=== PATIENT | female | born 1945 | race Caucasian/White ===

== ENCOUNTER 2016-03-06 05:33 | Emergency (ER) | payer MEDICARE ==
[~2016-03-06] VITALS: Ht 172.7 cm; Wt 59.8 kg
[~2016-03-06 05:33] MED LIST: LORTA5 PO; Z.0.NO CURRENT MEDS
[2016-03-06 05:40] VITALS: BP 119/68; PULSE 84; RESP 16; TEMP 97.8; O2SAT 98
[2016-03-06] MEDS ORDERED: AMIT24CA5 PO (06:09)
--- NOTE | 2016-03-06 06:27 | PD ---
HPI Chief Complaint: GI Complaint Time Seen by Provider: 06:05 Travel History International Travel<30 days: No Contact w/Intl Traveler<30days: No Traveled to known affect area: No History of Present Illness HPI The patient is a 70-year-old female with a history of irritable bowel syndromes and chronic constipation. She takes in Amitiza for the chronic constipation. She states this is worked until her boyfriend 2 weeks ago and now it is not working so well. She claims to have constipation now for 1 day. She denies any fever, nausea, vomiting, abdominal distention or diarrhea. She knows she does not drink adequate amounts of liquids. She is not a regular laxative taker, only takes Amitiza. PFSH Past Medical History Diminished Hearing: No Musculoskeletal: Yes (COMPRESSED DISCS) ?: Not Menopausal: Yes Past Surgical History Tonsillectomy: Yes Social History Alcohol Use: No Tobacco Use: No Substance Use: No Allergies-Medications (Allergen,Severity, Reaction): Coded Allergies: Iodine (Verified Allergy, Mild, 11/07/12) Reported Meds & Prescriptions Reported Meds & Active Scripts Active Golytely 236 gm (Polyethylene Glycol/Electrolytes) 4,000 Ml Soln 4,000 Ml PO ONCE Reported Amitiza (Lubiprostone) 24 Mcg Cap 24 Mg PO BID Review of Systems Except as stated in HPI: all other systems reviewed are Neg Physical Exam Narrative GENERAL: The patient is alert, oriented 3 in no apparent distress. Her vital signs are normal. SKIN: Warm and dry. No skin rash is present. HEAD: Atraumatic. Normocephalic. EYES: Pupils equal and round. No scleral icterus. No injection or drainage. ENT: No nasal bleeding or discharge. Mucous membranes pink and moist. NECK: Trachea midline. No JVD. CARDIOVASCULAR: Regular rate and rhythm. No murmur appreciated. RESPIRATORY: No accessory muscle use. Clear to auscultation. Breath sounds equal bilaterally. GASTROINTESTINAL: Abdomen soft, non-tender, nondistended. Hepatic and splenic margins not palpable. No guarding or rebound is present. MUSCULOSKELETAL: No obvious deformities. No clubbing. No cyanosis. No edema. NEUROLOGICAL: Awake and alert. No obvious cranial nerve deficits. Motor grossly within normal limits. Normal speech. PSYCHIATRIC: Appropriate mood and affect; insight and judgment normal. RECTAL EXAM: No masses or tenderness, stool is brown and guaiac-negative. There is a high fecal impaction present in the rectum. This was broken up digitally but the patient will need an enema. Data Data Last Documented VS Vital Signs Date Time Temp Pulse Resp B/P Pulse Ox O2 Delivery O2 Flow Rate FiO2 03/06/16 05:40 97.8 84 16 119/68 98 Room Air Orders Fleets Enema (Adult) (Fleets Enema (Adul (03/06/16 06:30) Magnesium Citrate Liq (Citroma Liq) (03/06/16 06:30) MDM Medical Decision Making Medical Screen Exam Complete: Yes Emergency Medical Condition: Yes Medical Record Reviewed: Yes Differential Diagnosis Fecal impaction, Amitiza side effect, dehydration, chronic laxative abuse Narrative Course The patient has a fecal impaction and does appear somewhat dehydrated. Plan: The patient should increase her oral intake and we will give her an enema. We will also give her magnesium citrate orally. The patient will be given GoLYTELY to drink at home. She is told to concentrate on drinking more fluids and not depending on laxitives. Diagnosis Primary Impression: Constipation Additional Impressions: Mild dehydration Fecal impaction in rectum Additional Instructions: Follow-up with a primary care physician, hopefully next week. As we discussed, it is important to increase your liquid intake. He will be given a bowel cleanser to drink, try to drink it in one day. This will ensure that she will pass these fecal impactions. Scripts Peg-Electrolytes (Golytely 236 gm)4,000 Ml Soln4,000 Ml PO ONCE #1 CONTAINER Ref 0 Prov:Irvin العراقي MD 03/06/16 Disposition: 01 DISCHARGE HOME Condition: Stable Irvin العراقي MD Mar 06, 2016 06:26
[2016-03-06] MEDS ORDERED: SOD PHOSPHATE/SOD BIPHOSPHATE (ADULT) ENEMA 133ML PR ONE (06:30)
[2016-03-06] MEDS ORDERED: MAGNESIUM CITRATE SOLN 300 ML BTL PO ONE (06:30)
[2016-03-06] MEDS ORDERED: COLY4000S PO (06:51)
== END 2016-03-06 07:06 | disposition home or self-care (01) ==
LOC: PHED 05:33
DX: K56.41 Fecal impaction (principal); E86.0 Dehydration; Z79.899 Other long term (current) drug therapy
CPT/HCPCS: 99283

== ENCOUNTER 2016-11-13 06:17 | Emergency (ER) | payer MEDICARE ==
[~2016-11-13] VITALS: Ht 172.7 cm; Wt 61.5 kg
[~2016-11-13 06:17] MED LIST changes: +AMIT24CA5 PO; +COLY4000S PO; -LORTA5 PO; -Z.0.NO CURRENT MEDS
[2016-11-13 06:19] VITALS: BP 119/58; PULSE 81; RESP 14; TEMP 97.7; O2SAT 97
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
--- NOTE | 2016-11-13 07:13 | RADRPT ---
EXAM DATE/TIME: 11/13/2016 06:54 [facility] COMPARISON: No previous studies available for comparison. INDICATIONS : Left lateral knee pain after bumping in into coffee table 2 weeks ago. Pain has become more persisten t. MEDICAL HISTORY : Irritable bowel syndrome. Neuropathy. SURGICAL HISTORY : Tonsillectomy. ENCOUNTER: Initial ACUITY: 2 weeks PAIN SCORE: 10/10 LOCATION: Left lateral knee FINDINGS: Four view examination of the left knee demonstrates no evidence of fracture or dislocation. Bony min eralization is normal. Mild osteoarthritis. The suprapatellar soft tissues have a normal configurati on. CONCLUSION: 1. No acute findings. Mild osteoarthritis. Oscar Alston MD on November 13, 2016 at 7:11 Board Certified Radiologist. This report was verified electronically.
[2016-11-13] MEDS ORDERED: KETOROLAC TROMETHAMINE 60 MG/2 ML (IM) VIAL IM ONE (07:45)
[2016-11-13] MEDS ORDERED: TYLE325T PO (07:49)
--- NOTE | 2016-11-13 07:49 | PD ---
Physical Exam Narrative Received sign out from previous team to follow up xray of left knee and reevaluate. 70yo F here with left knee pain after bumping her left knee in a marble coffee table 2 weeks ago. Pt is able to walk on it but she said she walks a lot and stands all day for her job. Pt has been taking motrin with no relieve. No further injuries. No fever, redness, swelling. Left knee is tender in lateral aspect where she bumped her knee. No erythema or edema. Sensation intact. Distal pulses intact. Xray left knee showed no acute findings. Mild osteoarthritis. Pt given toradol IM with improvement of pain. Pt has an appointment with her PMD tomorrow. Informed her that she likely needs further testing as outpatient if pain persists. Ordered knee immobilizer for comfort. Return precautions given. Data Data Last Documented VS Vital Signs Date Time Temp Pulse Resp B/P (MAP) Pulse Ox O2 Delivery O2 Flow Rate FiO2 11/13/16 06:19 97.7 81 14 119/58 (78) 97 Orders Orders Knee, Complete (4vws) (11/13/16 06:36) Ketorolac Inj (Toradol Inj) (11/13/16 07:45) MDM Supervised Visit with BRIANDA: No Diagnosis Primary Impression: Contusion of left knee Qualified Codes: S80.02XA - Contusion of left knee, initial encounter Patient Instructions: General Instructions Departure Forms: Tests/Procedures Additional Instruction: Please follow up with your primary care physician as scheduled tomorrow. Return to the ED if symptoms worsen. Med/Other Pt SpecificInfo: Prescription(s) given Scripts Acetaminophen (Tylenol) 325 Mg Tab 650 MG PO Q6H Y for PAIN SCALE 1 TO 4, #20 TAB 0 Refills Prov: Mildred Garrett 11/13/16 Disposition: 01 DISCHARGE HOME Condition: Stable Mildred Garrett Nov 13, 2016 07:49
== END 2016-11-13 08:18 | disposition home or self-care (01) ==
LOC: PHED 06:17
DX: S80.02XA Contusion of left knee, initial encounter (principal); W22.03XA Walked into furniture, initial encounter; G62.9 Polyneuropathy, unspecified
CPT/HCPCS: 73564; 96372; 99284; J1885; L1830